=== PATIENT | female | born 1995 | race Caucasian/White ===

== ENCOUNTER 2021-02-04 01:50 | Emergency (ER) | payer OTHER ==
[2021-02-04 02:07] VITALS: BP 127/81; PULSE 74; TEMP 98.4; BMI 25.0
[2021-02-04] MEDS ORDERED: DIPHTH,PERTUSS(ACELL),TET 0.5 ML DISP.SYRIN IM ONE ×2 (02:41→02:48)
[2021-02-04] MEDS ORDERED: ACETAMINOPHEN 325 MG TABLET (FP) PO ONE (02:42)
[2021-02-04] MEDS ORDERED: ACETAMINOPHEN 325 MG TABLET (FP) ONE (02:47)
[2021-02-04] MEDS ORDERED: AMOX TR/POT CLAV 875MG/125MG TABLETS (FP) PO ONE (02:51)
[2021-02-04] MEDS ORDERED: AMOX TR/POT CLAV 875MG/125MG TABLETS (FP) ONE (02:56)
== END 2021-02-04 05:54 | disposition home or self-care (01) ==
LOC: JER 01:50
PROC: 3E0234Z Introduction of Serum, Toxoid and Vaccine into Muscle, Percutaneous Approach (ICD-10-PCS; principal; 2021-02-04)
DX: S61.452A Open bite of left hand, initial encounter (principal)
CPT/HCPCS: 90715; 99284-25

== ENCOUNTER 2021-05-08 03:06 | Emergency (ER) | payer OTHER ==
[2021-05-08 03:17] VITALS: BP 121/74; PULSE 80; TEMP 98.3; BMI 25.0
[2021-05-08] MEDS ORDERED: AMOX TR/POT CLAV 875MG/125MG TABLETS (FP) PO ONE (03:31)
[2021-05-08] MEDS ORDERED: AMOX TR/POT CLAV 875MG/125MG TABLETS (FP) ONE (03:31)
== END 2021-05-08 03:43 | disposition home or self-care (01) ==
LOC: FER 03:06
DX: S61.511A Laceration without foreign body of right wrist, initial encounter (principal); W55.01XA Bitten by cat, initial encounter
CPT/HCPCS: 99283-25